=== PATIENT | female | born 1970 | race Caucasian/White ===

== ENCOUNTER 2018-02-25 10:56 | Emergency (ER) | payer BC ==
[~2018-02-25] VITALS: Ht 162.6 cm; Wt 54.4 kg
[~2018-02-25 10:56] MED LIST: ALPR1TAB2 PO; DOCU-144 PO; ESCI20TA PO; LISI10TA PO; LOSA25TA11 PO; NORCO5 PO; TAMO20TA4 PO
[2018-02-25 11:20] VITALS: BP_SYST 145
[2018-02-25] MEDS ORDERED: KETOROLAC TROMETHAMINE 60 MG/2 ML VIAL IM ONE (13:45)
[2018-02-25 14:05] VITALS: BP_SYST 134
== END 2018-02-25 14:05 | disposition home or self-care (01) ==
LOC: SED 10:56
DX: H72.92 Unspecified perforation of tympanic membrane, left ear (principal); I10 Essential (primary) hypertension; Z85.3 Personal history of malignant neoplasm of breast; Z90.710 Acquired absence of both cervix and uterus; Z79.899 Other long term (current) drug therapy
CPT/HCPCS: 96372; 99283; J1885

== ENCOUNTER 2019-10-12 18:38 | Emergency (ER) | payer BC, SELFPAY ==
[~2019-10-12] VITALS: Ht 162.6 cm; Wt 54.4 kg
[~2019-10-12 18:38] MED LIST changes: -LOSA25TA11 PO; +LOSA25TA18 PO
--- NOTE | 2019-10-12 18:50 | NUR ---
Patient triaged and placed in waiting room. VSS and patient appears in no acute distress at this time. Accompanied by self , awaiting available bed, and MD notified of need for MSE.
[2019-10-12 18:53] VITALS: BP_SYST 148
[2019-10-12 19:35] LABS: BASOPHILS % (AUTO) 0.7 % (0.0-2.0); EOSINOPHILS % (AUTO) 0.6 % (0.0-4.0); HEMATOCRIT 42.3 % (36-48); HEMOGLOBIN 14.1 g/dL (12.0-16.0); LYMPHOCYTES # (AUTO) 1.5 K/uL (1.0-5.5); LYMPHOCYTES % (AUTO) 20.1 % (20.5-51.5); MEAN CORPUSCULAR HEMOGLOBIN 31 pg (27-31); MEAN CORPUSCULAR HGB CONC 33 % (32-36); MEAN CORPUSCULAR VOLUME 93 fL (79.0-98.0); MONOCYTES # (AUTO) 0.4 K/uL (0.0-1.0); NEUTROPHILS # (AUTO) 5.3 K/uL (1.8-7.7); NEUTROPHILS % (AUTO) 72.6 % (40.0-70.0); PLATELET COUNT (AUTO) 282 K/uL (130-430); RED BLOOD CELL COUNT(AUTO) 4.55 MIL/uL (4.2-6.2); RED CELL DISTRIBUTION WIDTH 14.1 % (9.0-15.0); WHITE BLOOD COUNT (AUTO) 7.4 K/uL (4.8-10.8)
[2019-10-12 19:48] LABS: CALCIUM 10.5 mg/dL (8.4-11.0); CREATININE 0.77 mg/dL (0.55-1.30)
[2019-10-12 19:52] LABS: ALBUMIN 4.3 g/dL (3.4-4.8); TOTAL BILIRUBIN 2.1 mg/dL (0.0-1.0)
--- NOTE | 2019-10-12 21:44 | NUR ---
Patient to ER bed CHAIR 1 to gown for evaluation. Side rails up. Report given to BRANDON.
--- NOTE | 2019-10-12 22:14 | NUR ---
Dr. Vasquez at bedside.
--- NOTE | 2019-10-12 22:20 | NUR ---
RECEIVEDPT W/ MD AT BEDSIDE. PRESENTS W/ C/O ABD PAIN AND N/V.
[2019-10-12] MEDS ORDERED: NACL 0.9% 1,000 ML IV ONE (22:21)
[2019-10-12] MEDS ORDERED: ONDANSETRON HCL 4 MG/2 ML VIAL IVP ONE (22:30)
[2019-10-12 22:33] LABS: BILIRUBIN,URINE NEGATIVE (NEGATIVE); BLOOD, URINE NEGATIVE (NEGATIVE); CLARITY/URINE TURBID (CLEAR); COLOR,URINE YELLOW (YELLOW); GLUCOSE,URINE NEGATIVE (NEGATIVE); KETONES,URINE 3+ (NEGATIVE); LEUKOCYTE ESTERASE ,URINE NEGATIVE (NEGATIVE); NITRITE, URINE NEGATIVE (NEGATIVE); PROTEIN URINE NEGATIVE (NEGATIVE); UROBILINOGEN,URINE 0.2 (0.2-1.0)
[2019-10-12 22:51] LABS: BACTERIA,URINE MANY /HPF (None Seen); RBC,URINE 0-3 /HPF (0-3); WBC,URINE 0-3 /HPF (0-3)
[2019-10-12 22:52] LABS: URINE AMORPHOUS URATE 4+ /HPF (None Seen)
--- NOTE | 2019-10-12 23:20 | NUR ---
LEFT UPPER ARM IV SITED- 22 G, PT TOLERATED WELL. IVF AND ZOFRAN GIVEN FOR N/V AND ABD DISCOMFORT.
[2019-10-13] MEDS ORDERED: NACL 0.9% 1,000 ML IV ONE (01:00)
--- NOTE | 2019-10-13 01:00 | NUR ---
PT W/ C/O STILL FEELING NAUSEUS.
[2019-10-13] MEDS ORDERED: METOCLOPRAMIDE HCL 10 MG/2 ML VIAL IVP ONE (01:30)
[2019-10-13] MEDS ORDERED: DIPHENHYDRAMINE INJ 50 MG/ML VIAL IVP ONE (01:30)
--- NOTE | 2019-10-13 01:50 | NUR ---
MEDICATED W/ BENADRYL AND REGLAN FOR N/V AND ABD DISCOMFORT.
--- NOTE | 2019-10-13 02:10 | NUR ---
PT FEELS BETTER, MED EFFECTIVE. ASLEEP AT PRESENT
--- NOTE | 2019-10-13 02:30 | NUR ---
PT ASLEEP, PENDING MD DISPOSITION
--- NOTE | 2019-10-13 03:15 | NUR ---
SEEN BY DR QUEZADA AT BEDSIDE.
--- NOTE | 2019-10-13 03:35 | NUR ---
COVID TEST COLLECTED FROM THE [facility], SENT TO LAB FOR D/C , OUT PATIENT PROCESSING.
[2019-10-13 03:50] VITALS: BP_SYST 130
--- NOTE | 2019-10-13 03:50 | NUR ---
Patient given written and verbal discharge instructions and verbalizes understanding. ER MD discussed with patient the results and treatment provided. Patient in stable condition. ID arm band removed. IV catheter removed intact and dressing applied, no active bleeding. Rx FOR COMPAZINE PO given. Patient educated on pain management and to follow up with PMD. Pain Scale 0/10.Opportunity for questions provided and answered.
== END 2019-10-13 03:50 | disposition home or self-care (01) ==
LOC: SED 18:38
DX: R10.84 Generalized abdominal pain (principal); R11.10 Vomiting, unspecified; I10 Essential (primary) hypertension; Z20.828 Contact with and (suspected) exposure to other viral communicable diseases; Z79.899 Other long term (current) drug therapy
CPT/HCPCS: 36415; 80053; 81000; 81025; 83690; 85025; 87086; 96361 ×2; 96374; 96375; 99285; C9803; J1200; J2405; J2765; J7030; U0003